=== PATIENT | female | born 1965 | race American Indian/Alaskan Native ===

== ENCOUNTER 2017-04-19 23:40 | Emergency (ER) | payer SELFPAY ==
[2017-04-20] MEDS ORDERED: NORMODYNE IV ONE ×2 (00:02→00:28)
[2017-04-20] MEDS ORDERED: ACTIVASE IV ONE ×2 (00:08)
[2017-04-20] MEDS ORDERED: NACL 0.9% IV ONE (00:08)
[2017-04-20 00:19] LABS: Basophils % (Auto) 0.6 % (0.0-1.8); Eosinophils % (Auto) 2.4 % (0.0-4.3); Hemoglobin 14.6 gm/dl (10.1-14.3); Mean Corpuscular HGB Conc 33 % (30-34); Mean Corpuscular Volume 78 fl (79-97); Platelet Count 354 K/mm3 (140-440); Red Blood Count 5.63 M/mm3 (3.65-5.03); Red Cell Distribution Width 13.4 % (13.2-15.2); White Blood Count 9.5 K/mm3 (4.5-11.0)
[2017-04-20 00:23] LABS: INR 1.01 (0.87-1.13)
[2017-04-20 00:24] LABS: Partial Thromboplastin Time 30.4 Sec. (24.2-36.6)
--- NOTE | 2017-04-20 00:24 | Cat Scan Report ---
FINAL REPORT EXAM: CT HEAD/BRAIN WO CON HISTORY: stroke rt facial droop TECHNIQUE: Routine axial imaging was obtained the brain without IV contrast with images reviewed on brain and bone window settings. There no previous studies available for comparison. FINDINGS: There is an acute parenchymal hemorrhage in the left temporal lobe measuring 2.1 cm x 1.5 cm without mass effect. There are no additional areas of hemorrhage. The ventricular system is appropriate in size and is symmetric. The posterior fossa structures appear normal. The sinuses reveal a 15 millimeter in diameter polyp in the right sphenoid sinus. The mastoid air cells are well pneumatized. The calvarium appears intact. IMPRESSION: Acute parenchymal hemorrhage in the left temporal lobe measuring 2.1 cm x 1.5 cm without mass effect. 15 millimeter polyp in the right sphenoid sinus. The CT findings were discussed with Dr. Jewell at 12:22 a.m. on 04/20/2017.
--- NOTE | 2017-04-20 00:30 | Emergency Department Report ---
HPI - General Chief Complaint: Neuro Symptoms/Deficit Time Seen by Provider: 04/20/17 00:06 - HPI HPI: The patient is a 51-year-old female with a history of uncontrolled hypertension whom presents for evaluation of neuro deficits. The patient reports that 2 hours prior to arrival she developed sudden onset of difficulty ambulating, abnormal gait, coordination deficit, and weakness. She shares that her symptoms have been constant since onset, severe, exacerbated with attempted activity, and improved at rest. She also admits to some slurring of her speech. She denies trauma or injury to the head, headache, neck pain, chest pain, dyspnea, abdominal pain, hemoptysis, paresthesia. ED Past Medical Hx - Past Medical History Previous Medical History?: Yes Hx Hypertension: Yes - Surgical History Past Surgical History?: No - Social History Smoking Status: Never Smoker Substance Use Type: None ED Review of Systems ROS: Stated complaint: WEAKNESS Other details as noted in HPI Constitutional: denies: fever ENT: denies: throat or neck pain Respiratory: denies: cough, shortness of breath Cardiovascular: denies: chest pain Endocrine: denies unexplained weight loss or gain Gastrointestinal: denies: abdominal pain, nausea Genitourinary: denies: dysuria Musculoskeletal: denies: leg swelling Skin: denies: rash Neurological: reports weakness, speech change, coordination deficit denies: headache Hematological/Lymphatic: denies: easy bleeding or easy bruising Psych: denies sadness or hopelessness Physical Exam - Physical Exam Vital Signs: Vital Signs 04/19/17 04/20/17 04/20/17 23:46 00:15 00:18 Temperature 98.2 F Pulse Rate 104 H 90 Respiratory 22 17 Rate Blood Pressure 214/145 210/135 [Right] O2 Sat by Pulse 99 96 Oximetry Physical Exam: General: well-nourished, well-developed, no acute distress Head: Normocephalic, atraumatic Eyes: normal sclera, EOMI, PERRL ENT: Mucous membranes are pink and moist Neck: trachea midline, neck supple, No neck stiffness, no cervical adenopathy Respiratory: Breath sounds equal bilaterally, no wheezing, rales, or rhonchi Cardio: S1 and S2 present, no murmurs, rubs, gallops, capillary refill is brisk Abdomen: Normoactive bowel sounds, soft abdomen, no rigidity, no guarding or rebound tenderness Musc: No pitting edema Skin: No rash Neuro: Alert, oriented 3, mild slurring of speech, right lower facial drooping mild, right upper extremity weakness, right upper extremity coordination deficit with finger to nose testing, no sensation deficit, 1+ reflex in the right upper extremity, reflexes are 2+ on DTR testing in all other extremities Psych: Normal affect ED Course Vital Signs 04/19/17 04/20/17 04/20/17 23:46 00:15 00:18 Temperature 98.2 F Pulse Rate 104 H 90 Respiratory 22 17 Rate Blood Pressure 214/145 210/135 [Right] O2 Sat by Pulse 99 96 Oximetry ED Medical Decision Making - Lab Data Result diagrams: 04/20/17 00:07 04/20/17 00:07 - Medical Decision Making The patient was seen and examined by myself. The patient is placed on a phototypesetting equipment monitor and continuous pulse ox. On initial evaluation, the patient was found to be in no distress. Evaluation orders were placed. The patient is given IV fentanyl for his pain and IV labetalol for elevated blood pressure. CT scan the head reveals an acute left temporal parenchymal hemorrhage. The patient was reevaluated and found to remain with significantly elevated blood pressure. The patient started on a cardene drip. Multiple bedside assessments were performed to assess patient responsiveness to antihypertensive infusion. Lab results revealed elevated glucose 400, and elevated CK, hemoglobin, hematocrit, consistent with hemoconcentration and dehydration. The patient is questioned regarding severely elevated glucose level, and she shares that she has not received a medical evaluation in some time but she was previously informed that she was prediabetic. She denies ever receiving a diagnosis of diabetes or initiating hypoglycemic regimen. The patient's critically elevated blood sugar with no previous history of known diabetes is consistent with new diagnosis of type 2 diabetes. The patient is given IV insulin for treatment of hyperglycemia. The patient was reevaluated and found to have decrease in blood pressure below 160/90. Dr. Hernandez, the on-call neuro pilot boat captain at [facility] was contacted. He agreed to accept transfer of the patient. He requested that the patient received IV Keppra. The patient was given the IV Keppra as requested. The patient is transferred to [facility]. Critical Care Time: Yes Critical care time in (mins) excluding proc time.: 35 Critical care attestation.: Due to the critical nature of this patients presentation, which necessitated multiple bedside assessments, manipulation and supportive measures to prevent further life threatening deterioration, I would like to bill for a total of 35 minutes of critical care time. This was exclusive of any separately billable procedures. Critical Care Time: 35 min ED Disposition Clinical Impression: Stroke due to intracerebral hemorrhage, Hypertensive emergency, New onset type 2 diabetes mellitus, Dehydration Disposition: [id number]/[id number] ANOTHER TYPE HLTHCARE Is pt being admited?: No Does the pt Need Aspirin: No Condition: Critical Instructions: Diabetes Mellitus Type 2 in Adults (ED), Hypertension (ED) Referrals: PRIMARY CARE, [Referring] - 3-5 Days Time of Disposition: 00:26
[2017-04-20 00:31] LABS: Creatine Kinase MB 1.6 ng/mL (0.0-4.0)
[2017-04-20 00:32] LABS: Alanine Aminotransferase 21 units/L (7-56); Albumin 4.6 g/dL (3.9-5); Albumin/Globulin Ratio 1.3 %; Alkaline Phosphatase 95 units/L (35-129); Anion Gap 19 mmol/L; BUN/Creatinine Ratio 17; Blood Urea Nitrogen 10 mg/dL (7-17); Calcium 9.5 mg/dL (8.4-10.2); Carbon Dioxide 28 mmol/L (22-30); Chloride 93.4 mmol/L (98-107); Glucose 406 mg/dL (65-100); Potassium 4.1 mmol/L (3.6-5.0); Sodium 136 mmol/L (137-145); Total Protein 8.2 g/dL (6.3-8.2)
[2017-04-20] MEDS ORDERED: KEPPRA 1,000 MG/NS 0.75% 100ML 1,000 MG/100 ML BAG IV ONE (00:51)
[2017-04-20 00:56] LABS: Mean Corpuscular Hemoglobin 26 pg (28-32)
[2017-04-20] MEDS ORDERED: CARDENE 50 MG in NACL 0.9% 250ML 230 ML IV SCH (01:00)
[2017-04-20] MEDS ORDERED: SUBLIMAZE ONE (01:54)
[2017-04-20] MEDS ORDERED: NACL 0.9% 1000 ML 1,000 ML ONE (02:12)
[2017-04-20 02:21] VITALS: BP 96/62
[2017-04-20] MEDS ORDERED: NACL 0.9% 1000 ML 1,000 ML IV ONE (02:21)
== END 2017-04-20 02:25 | disposition other institution (70) ==
LOC: ED 23:40
DX: I61.8 Other nontraumatic intracerebral hemorrhage (principal); I16.1 Hypertensive emergency; E86.0 Dehydration; E11.9 Type 2 diabetes mellitus without complications
CPT/HCPCS: 36415; 70450; 80053; 82550; 82553; 82962; 85025; 85610; 85670; 85730; 93005; 93010; 96361; 96365; 96375; 99291; G0480; J1953; J3010; J7030; J7050; 80320; J1815